=== PATIENT | female | born 1940 | race Two or more races ===

== ENCOUNTER 2018-10-03 07:17 | Emergency (ER) | payer MEDICARE, OTHER ==
--- NOTE | 2018-10-03 09:21 | ER Document Report ---
ED General - General Chief Complaint: Insect Bite Stated Complaint: INSECT BITE Time Seen by Provider: 10/03/18 09:20 Primary Care Provider: RAY DRISCOLL DO [Primary Care Provider] - Follow up in 3-5 days TRAVEL OUTSIDE OF THE [place] IN LAST 30 DAYS: No - HPI Notes: 77-year-old female to the emergency department with with complaints of left hand wasp sting that occurred yesterday. States that she was watering some bushes when wasp came out and stung her. States that since then her hand has been red, swollen, itchy, and painful. She has not taken anything for this sting. Denies any fevers, chills, nausea, vomiting, throat closing, tongue swelling, redness of breath, sensation of tight throat. She has never been stung by a wasp before. - Related Data Allergies/Adverse Reactions: No Known Drug Allergies Allergy (Unknown, Verified 10/03/18 07:26) strawberry [[place]] Adverse Reaction (Verified 10/03/18 07:26) Generalized rash Past Medical History - General Information source: Patient - Social History Smoking Status: Never Smoker Frequency of alcohol use: None Drug Abuse: None Family History: Reviewed & Not Pertinent Patient has suicidal ideation: No Patient has homicidal ideation: No - Past Medical History Cardiac Medical History: Reports: Hx Hypertension - CONTROLLED Denies: Hx Heart Attack Pulmonary Medical History: Denies: Hx Asthma Neurological Medical History: Denies: Hx Cerebrovascular Accident, Hx Seizures Renal/ Medical History: Denies: Hx Peritoneal Dialysis GI Medical History: Denies: Hx Hepatitis, Hx Hiatal Hernia, Hx Ulcer Infectious Medical History: Denies: Hx Hepatitis Past Surgical History: Reports: Hx Appendectomy, Hx Mastectomy - LEFT BREAST C ANCER, LT ARM RESTRICTED. Denies: Hx Open Heart Surgery, Hx Pacemaker - Immunizations Hx Diphtheria, Pertussis, Tetanus Vaccination: - unknown Review of Systems - Review of Systems Constitutional: denies: Chills, Fever EENT: No symptoms reported. denies: Throat swelling, Mouth swelling Cardiovascular: denies: Chest pain, Palpitations, Heart racing, Syncope, Dizziness, Lightheaded, Edema Respiratory: denies: Cough, Hurts to breathe, Short of breath, Wheezing Gastrointestinal: denies: Abdominal pain, Diarrhea, Nausea, Vomiting Genitourinary: No symptoms reported Skin: Other - Redness, swelling, itching, pain from bee sting to the back of the left hand Neurological/Psychological: Weakness, Numbness -: Yes All other systems reviewed and negative Physical Exam - Vital signs Vitals: Temp Pulse Resp BP Pulse Ox 97.6 F 91 18 197/93 H 95 10/03/18 07:27 10/03/18 07:27 10/03/18 07:27 10/03/18 07:27 10/03/18 07:27 Interpretation: Hypertensive - General General appearance: Appears well In distress: None - HEENT Head: Normocephalic, Atraumatic Eyes: Normal Pupils: PERRL - Respiratory Respiratory status: No respiratory distress Chest status: Nontender Breath sounds: Normal Chest palpation: Normal - Cardiovascular Rhythm: Regular Heart sounds: Normal auscultation Murmur: No - Abdominal Inspection: Normal Distension: No distension Bowel sounds: Normal Tenderness: Nontender Organomegaly: No organomegaly - Back Back: Normal, Nontender - Extremities Shoulder: Nontender Elbow: Nontender Forearm: Nontender Wrist: Nontender Hand: Swelling, Other - To the dorsum of the left hand there are several Wasp stings to the left ring finger with noted erythema, edema that spreads into the dorsum of the palm. The erythema and edema does not spread up to the arm and there is no evidence of streaking lymphangitis. Handgrip in his hand is about 4 out of 5 in strength likely due to the tightness from the local reaction of the wasp sting. - Neurological Neuro grossly intact: Yes Cognition: Normal Orientation: AAOx4 [place] Coma Scale Eye Opening: Spontaneous [place] Coma Scale Verbal: Oriented [place] Coma Scale Motor: Obeys Commands [place] Coma Scale Total: 15 Speech: Normal Motor strength normal: LUE, RUE, LLE, RLE Sensory: Normal - Psychological Associated symptoms: Normal affect, Normal mood - Skin Skin Temperature: Warm Skin Moisture: Dry - See extremity discussion about wasp sting Course - Vital Signs Vital signs: Temp Pulse Resp BP Pulse Ox 97.9 F 99 18 172/73 H 98 10/03/18 10:05 10/03/18 10:05 10/03/18 07:27 10/03/18 10:05 10/03/18 10:05 - Transfer of Care Notes: 10/03/18 Impression: Left hand wasp sting with likely local reaction. We will plan on giving steroids, Benadryl, and will cover with Keflex in case this tries to become a cellulitic process. Noted blood pressure. Patient has a history of hypertension and needs to take her blood pressure medicine. She denies any symptoms. Will discharge home and have her follow with her primary care physician. She and her agree with the plan. Discharge - Discharge Clinical Impression: Wasp sting, Local reaction to bee sting Condition: Good Disposition: HOME, SELF-CARE Instructions: Insect Sting ([facility]), Swollen Insect Bite or Sting ([facility]) Additional Instructions: Take medicines as prescribed. Return if worsening pain, redness, streaking redness, fevers, draining wound, pus. Follow up with primary care in 2 days. Prescriptions: Cephalexin Monohydrate [Keflex 500 mg Capsule] 500 mg PO QID #20 capsule Diphenhydramine HCl [Benadryl] 25 mg PO Q6H #20 capsule Prednisone [Deltasone 10 mg Tablet] 10 mg PO ASDIR PRN #21 tablet PRN Reason: Referrals: RAY DRISCOLL DO [Primary Care Provider] - Follow up in 3-5 days
[2018-10-03] MEDS ORDERED: DIPHENHYDRAMINE HCL 25 MG CAPSULE PO ONE (09:38)
[2018-10-03] MEDS ORDERED: PREDNISONE 20 MG TABLET PO ONE (09:38)
[2018-10-03 10:08] VITALS: BP 172/73
== END 2018-10-03 10:08 | disposition home or self-care (01) ==
LOC: ER 07:17
DX: T63.461A Toxic effect of venom of wasps, accidental (unintentional), initial encounter (principal); X58.XXXA Exposure to other specified factors, initial encounter; Y93.H2 Activity, gardening and landscaping; Y92.007 Garden or yard of unspecified non-institutional (private) residence as the place of occurrence of the external cause
CPT/HCPCS: 99282; A9270 ×2; J7512